=== PATIENT | female | born 1995 | race African-American/Black ===

== ENCOUNTER 2021-11-01 18:16 | Emergency (ER) | payer MEDICAID ==
[~2021-11-01] VITALS: Ht 177.8 cm; Wt 65.8 kg
[2021-11-01 18:23] VITALS: BP 168/62
--- NOTE | 2021-11-01 18:23 | NUR ---
[facility]IBA TO [facility]
--- NOTE | 2021-11-01 19:08 | NUR ---
CALLED [facility], CONFIRMED THEY WERE ON SCENE AND REPORT HAS BEEN FILED. CASE #[id number]
--- NOTE | 2021-11-01 23:13 | NUR ---
called to bed , no response PATIENT LEFT WITHOUT BEING SEEN BY DR. WALL. NO FURTHER CARE PROVIDED FOR PATIENT.
--- NOTE | 2021-11-01 23:18 | NUR ---
CALLED FOR THE SECOND TIME , NO RESPONSE
--- NOTE | 2021-11-01 23:23 | NUR ---
CALLED FOR THE THIRD TIME NO RESPONSE
== END 2021-11-01 23:13 | disposition left against medical advice (07) ==
LOC: MED 18:16
DX: M54.2 Cervicalgia (principal); M25.519 Pain in unspecified shoulder; Z53.21 Procedure and treatment not carried out due to patient leaving prior to being seen by health care provider; Y04.2XXA Assault by strike against or bumped into by another person, initial encounter; Y93.89 Activity, other specified; Y92.89 Other specified places as the place of occurrence of the external cause; Y99.8 Other external cause status